=== PATIENT | male | born 2000 | race African-American/Black ===

== ENCOUNTER 2019-05-15 16:27 | Emergency (ER) | payer SELFPAY ==
[~2019-05-15] VITALS: Ht 190.5 cm; Wt 95.5 kg
[2019-05-15 16:29] VITALS: BP 147/68; TEMP 97.6
[2019-05-15 18:19] VITALS: PULSE 71
== END 2019-05-15 18:19 | disposition home or self-care (01) ==
LOC: COL.ER 16:27
DX: T17.298A Other foreign object in pharynx causing other injury, initial encounter (principal); R07.0 Pain in throat